=== PATIENT | female | born 1950 | race Caucasian/White ===

== ENCOUNTER 2016-10-31 21:37 | Inpatient (IN) | payer MEDICARE, OTHER ==
--- NOTE | ~2016-10-31 | EGD ---
EGD REPORT [facility] [address] [place] [address] NAME: ALMA SNEED : 52 STATUS : ADM IN PAT#: [id number] AGE: 66 ADM/REG DATE : 11/01/16 MR#: [id number] REPORT SERV DATE: 11/03/16 DICTATED BY: DIANA PETERSON DATE: 11/03/16 REPORT STATUS : Draft TRANSCRIBED BY: [employer] DATE: 11/03/16 [facility] Center Patient Name: Alma Sneed Date of : 1950 Attending MD: DIANA PETERSON, Procedure Date No Time: 11/03/2016 Procedure: Upper GI endoscopy Indications: Iron deficiency anemia secondary to chronic blood loss Medicines: Propofol per Anesthesia Complications: No immediate complications. Estimated blood loss: None. Procedure: Pre-Anesthesia Assessment: - ASA Grade Assessment: III - A patient with severe systemic disease. - ASA Grade Assessment: E - Emergency. After obtaining informed consent, the endoscope was passed under direct vision. Throughout the procedure, the patient's blood pressure, pulse, and oxygen saturations were monitored continuously. The GIF [id number] was introduced through the mouth, and advanced to the second part of duodenum. The upper GI endoscopy was accomplished with ease. The patient tolerated the procedure well. Findings: The examined esophagus was normal. The Z-line was found 35 cm from the incisors. Patchy moderate inflammation characterized by congestion (edema), erosions and erythema was found in the entire examined stomach. Biopsies were taken with a cold forceps for Helicobacter pylori testing. Estimated blood loss: none. The duodenal bulb and 2nd part of the duodenum were normal. Impression: - Normal esophagus. - Z-line 35 cm from the incisors. - Gastritis. Biopsied. - Normal duodenal bulb and 2nd part of the duodenum. Recommendation: - Return patient to [facility] for [facility] care. - Regular diet. - Use Protonix (pantoprazole) 40 mg PO daily. - Await pathology results. - No aspirin, ibuprofen, naproxen, or other non-steroidal anti-inflammatory drugs. - Perform a colonoscopy at appointment to be scheduled. EGD REPORT [facility] [address] [address] NAME: ALMA SENED : [birth year] STATUS : ADM IN [facility]#: [id number] AGE: 66 ADM/REG DATE : 11/01/16 MR#: [id number] REPORT SERV DATE: 11/03/16 DICTATED BY: DIANA PETERSON DATE: 11/03/16 REPORT STATUS : Draft TRANSCRIBED BY: mPortal DATE: 11/03/16 Procedure Code(s): --- Professional --- 94620, Esophagogastroduodenoscopy, flexible, transoral; with biopsy, single or multiple Diagnosis Code(s): --- Professional --- K29.70, Gastritis, unspecified, without bleeding D50.0, Iron deficiency anemia secondary to blood loss (chronic) CPT copyright 2013 [employer]. All rights reserved. The codes documented in this report are preliminary and upon project control officer review may be revised to meet current compliance requirements. DIANA PETERSON, 11/03/2016 1:39 PM This report has been signed electronically. Number of Addenda: 0 Note Initiated On: 11/03/2016 1:04 PM Scope Withdrawal Time 0 hours 0 minutes 0 seconds [address] [id number]
--- NOTE | ~2016-10-31 | DS ---
Discharge Summary [facility] [address] [place]. [address] NAME: SALAZAR SNEED : 52 STATUS : DIS IN PAT#: [id number] AGE: 66 ADM/REG DATE : 11/01/16 MR#: [id number] REPORT SERV DATE: 11/08/16 DICTATED BY: DATE: REPORT STATUS : Draft TRANSCRIBED BY: MODL DATE: 11/07/16 ADMISSION DATE: 11/01/2016 DISCHARGE DATE: 11/07/2016 The patient is admitted to the [facility]. CONSULTANTS: Included Dr. Oma Sosa of Gastroenterology. DISCHARGE DIAGNOSES: 1. Severe iron deficiency anemia status post 4 units of packed red blood cells. Status post EGD this admission-normal. For outpatient colonoscopy. Stool 1/3 positive for blood. 2. Anasarca-suspect nutritional. 3. Nephrotic range proteinuria-for outpatient followup after initiation of JOSE JUAN inhibitor. 4. Transaminitis due to hepatic congestion, improved. 5. Left lower extremity DVT-status post IVC filter on 11/01/2016. Not a candidate for anticoagulation until anemia evaluation is complete. 6. Elevated CA-125-past history of complete hysterectomy. 7. Escherichia coli UTI-started on antibiotics on 11/05/2016, to treat through 11/11/2016, given use of Belle catheter this admission. Urinary tract infection was present at admission. 8. Glaucoma. 9. Severe weakness for ongoing physical rehabilitation. PERTINENT LABS: Admission hemoglobin 2.7, 8.6 at the time of discharge. Creatinine normal. Urinalysis pertinent for urinary tract infection. Subsequent culture pansensitive E. coli. Liver enzymes mildly elevated at admission with AST 49, ALT 126, normalized at discharge. Serum protein electrophoresis negative, hepatitis serology is negative. HIV negative. CA- 125 positive, 24-hour urine protein demonstrating nephrotic range proteinuria. UPEP negative. C3-98, C-4 22, folate 20, B12 495, ferritin 6. BRIEF HISTORY: For full details, please see the previously dictated history of present illness by Cuba Jaimes. This is a 66-year-old white female with minimal past medical history, rare followup with physicians, who presented to the emergency department with chief complaint of progressive edema and shortness of breath for one month. In the emergency department, hemoglobin was noted to be 2.7, and vital signs were stable. The patient was admitted to the [facility] for further stabilization. HOSPITAL COURSE: For full details, please reference interim summary by Dr. Stephane Be, for dates of service 11/01/2016 through 11/04/2016. The patient was transfused four units of packed red blood cells with improvement in hemoglobin to 8.6, and improvement in clinical symptoms. The patient was seen by Dr. Oma Sosa of Gastroenterology and underwent upper endoscopy, which was found to be unremarkable. Colonoscopy was not pursued this hospitalization, but will be done as an outpatient. The patient was heme positive, 1/3 stool samples. Discharge Summary [facility] [address] [place] [address] NAME: SALAZAR SNEED : 52 STATUS : DIS IN PAT#: [id number] AGE: 66 ADM/REG DATE : 11/01/16 MR#: [id number] REPORT SERV DATE: 11/08/16 DICTATED BY: DATE: REPORT STATUS : Draft TRANSCRIBED BY: MODL DATE: 11/07/16 The patient was also found to have left lower extremity DVT this admission. Due to the severity of anemia and incomplete nature of the evaluation for anemia, she was not felt to be a candidate for therapeutic anticoagulation at present. Interventional Radiology placed an IVC filter without difficulty. The patient was seen by Physical Therapy and Occupational Therapy, with recommendation to go to rehab at discharge. She demonstrated anasarca during the admission and had a 24-hour urine collection showing nephrotic range proteinuria. She was started on diuretics and potassium and low-dose lisinopril. Her lower extremity edema improved during the hospitalization. There was felt to be a nutritional component to her anasarca as well. There was no evidence of liver disease on imaging, she did have some increased liver enzymes during the admission initially, this resolved with diuresis and was felt due to passive hepatic congestion. DISCHARGE DISPOSITION: The patient is being discharged to [facility] for additional physical rehabilitation. She has multiple followup appointments that will need to be scheduled. She needs to see Dr. Oma Sosa, within one to two weeks after rehab discharge for planning for colonoscopy. She also needs to follow up with her green marketing analyst regarding the elevated CA-125 level, for a well-woman exam. Incidentally, the patient states she has had a prior history of complete hysterectomy and so it is unclear why this enzyme would be elevated. The patient also does not have a primary care provider, but was provided with a list of primary care providers who are currently accepting patients. If the patient's proteinuria fails to resolve with the low-dose JOSE JUAN inhibitor, she would benefit from eventual referral to Nephrology. Of note, MAYDA was ordered during the admission, but was not sent as ordered. Instead an ANCA panel was obtained and is pending at the time of dictation. The patient will need an outpatient MAYDA as part of her evaluation. DISCHARGE MEDICATIONS: Include: 1. Combigan eyedrops one drop in each eye twice a day. 2. Xalatan eyedrops one drop in each eye twice a day. 3. Prinivil 2.5 mg p.o. daily. 4. Multivitamin one tablet p.o. with breakfast. 5. Protonix 40 mg p.o. with breakfast. 6. Hemocyte 1 tablet p.o. with breakfast and supper. 7. Acetaminophen 650 mg p.o. every 4 hours as needed for pain. 8. Colace 100 mg p.o. twice a day as needed for constipation. 9. Senokot 2 tabs p.o. at bedtime p.r.n. constipation. 10.Lasix 40 mg p.o. daily. 11.Potassium chloride 40 mEq p.o. daily. 12.Nitrofurantoin 100 mg p.o. b.i.d. through 11/11/2016. An echocardiogram was performed this admission-with results still pending at the time of dictation. Available detail was reviewed and shows no evidence of systolic dysfunction. Whether she may also have diastolic dysfunction is presently unknown, but Dr. Corbin will update the report that is available. Discharge Summary [address] [address] NAME: SALAZAR SNEED : 52 STATUS : DIS IN PAT#: [id number] AGE: 66 ADM/REG DATE : 11/01/16 MR#: [id number] REPORT SERV DATE: 11/08/16 DICTATED BY: DATE: REPORT STATUS : Draft TRANSCRIBED BY: REA DATE: 11/07/16 Thirty five minutes was spent in completion of the discharge, including coordination of plan with the patient, family, case management, and rehab. AMAYA/REA Niko Ricketts M.D. / [id number] CC: Li Tapia MD
--- NOTE | ~2016-10-31 | HP ---
History And Physical [place] [id number] [facility] [place]. [address] NAME: SALAZAR SNEED : 52 STATUS : ADM IN [facility]#: [id number] AGE: 66 ADM/REG DATE : 11/01/16 MR#: [id number] REPORT SERV DATE: 11/01/16 DICTATED BY: LISA PAIZ DATE: 11/01/16 REPORT STATUS : Draft TRANSCRIBED BY: MODL DATE: 11/01/16 DATE OF ADMISSION: 11/01/2016 CHIEF COMPLAINT: Swelling of lower extremities and shortness of breath. HISTORY OF PRESENT ILLNESS: The patient is a 66-year-old female with past medical history of hysterectomy for benign cyst, who denies any additional medical history, who reports over the last year, she has been having progressive edema and shortness of breath with activity that has been worsening particularly over the last month. The patient is accompanied by daughter, who has been trying to convince the patient to come in over the last week. The patient has noted that edema has been constant, fairly severe. The patient noted she has been more pale. There is no chest pain or radiating symptoms. The patient has noticed increased shortness of breath with activity with decreased exercise tolerance and has generalized weakness. The patient attributes all these symptoms to life and situational stressors. The patient has had no nausea, vomiting, diuresis, headaches, or fever. Has had increased eating of ice, although she reports she has had this over the last 10 years. 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 Had missed her lab appointment last year, but was also advised to take iron supplements for presumed anemia at that time. Symptoms of shortness of breath are worsened with activity. No relieving symptoms. However, the patient does feel slightly better after getting first unit of blood transfusion. As the patient arrived, the patient is noted to have a hemoglobin at 2.7, although vital signs are remarkably stable aside from mild hypoxemia on 4 L by nasal cannula. PAST MEDICAL HISTORY: The patient denies except for some mild glaucoma. PAST SURGICAL HISTORY: Hysterectomy with salpingo-oophorectomy and wisdom teeth. FAMILY HISTORY: Diabetes and hypertension. SOCIAL HISTORY: Lives alone. Single. Works on the farm. Did have a 17-year smoking history, but quit years ago. No alcohol or illicits. Accompanied by daughter and son was previously here earlier. ALLERGIES: NO KNOWN DRUG ALLERGIES. HOME MEDICATIONS: Combigan and Xalatan. EKG: Normal sinus rhythm, mild inverted T-waves in lead III. Rate of 81. QTc of 457. PHYSICAL EXAMINATION: VITAL SIGNS: Blood pressure 133/46, temperature 98.4, pulse 81, respirations 20, O2 saturations 100% on 4 L. GENERAL: Elderly, frail, pale, but obese female. EYES: Very pale conjunctivae, but symmetrical response. ENT: Dry mucous membranes. History And Physical [address] [address] NAME: SALAZAR SNEED : 52 STATUS : ADM IN [facility]#: [id number] AGE: 66 ADM/REG DATE : 11/01/16 MR#: [id number] REPORT SERV DATE: 11/01/16 DICTATED BY: LISA PAIZ DATE: 11/01/16 REPORT STATUS : Draft TRANSCRIBED BY: ERA DATE: 11/01/16 RESPIRATORY: Clear to auscultation. No wheezes. CV: Physiologic flow murmur. Regular rate. 3+ bilateral edema up to abdomen. GI: Bowel sounds positive. Abdominal edema. Central obesity. : Deferred. Belle placed. MUSCULOSKELETAL: Moves all extremities x4. SKIN: Warm and dry, but pale. Does have bug bites on multiple areas on shoulder, leg, neck, and torso. LYMPH: 3+ edema to abdomen. HEME: No bleeding or bruising. NEURO: Alert and oriented. Does have mild head bobbing. Symmetrical vocal tony. Symptomatically orthostatic. PSYCH: Calm, slightly odd affect, but appropriate responses. LABORATORY DATA: CMP; sodium 138, potassium 4.8, chloride 107, bicarb 17, BUN and creatinine 32 and 1.2, glucose 186, calcium 8.1, albumin 2.7, AST and ALT 233 and 307, alkaline phosphatase 219, T bilirubin 1.3. Troponin negative. BNP 1028.3. CBC; WBC count 11.1, H and H 2.7 and 11.4 with MCV severely low at 58.8, platelets at 358. INR 2.1. Protime 23.4. ASSESSMENT: 1. Severe anemia. 2. Questionable liver injury with elevated LFTs, questionable hepatitis, hepatic congestion. 3. Edema with elevated BNP, questionable congestive heart failure. 4. Metabolic acidosis. 5. Elevated INR. 6. Questionable bedbug. PLAN: 1. For severe anemia, FOBT is currently negative in the emergency room. We will need to follow serial fecal occult blood tests. We will escobar CT with CT chest, abdomen, and pelvis without contrast at this time. No signs of acute bleed. The patient's vital signs remained stable. Imagine this is likely chronic anemia, as the patient has been told in the past to be on iron supplementation, but has not been doing this. Has not followed with PCP except for stock trader, but forgot to get labs at last visit. Transfusing PRBCs, however, in the setting of elevated BNP and volume overload. We will need to monitor closely the patient's physiologic vascular circuit. We will diurese after PRBCs. Followup chest x-rays, as the patient does have clinical volume overload and has been having dyspnea with exertion, likely multifactorial with anemia, worsened by edema. We will complete workup for anemia. Obtain retic count. Iron studies. Blood and labs. No acute sign or acute cause for bleeding, but does have an additional, what appears to be, liver injury. No gross splenomegaly at this time. 2. Questionable liver injury with elevated LFTs. Questionable hepatitis versus hepatic congestion. Check CT. Hepatitis panel, abnormal LFTs, bilirubin mildly elevated, and INR. No current asterixis. We will additionally have GI consultation for both anemia and abnormal LFTs. Monitor clinically. 3. Edema with elevated BNP. No cardiac history reported. We will need to check echocardiogram, as the patient is notably edematous. Has not had prior cardiac workup. History And Physical [address] [address] NAME: SALAZAR SNEED : 52 STATUS : ADM IN PAT#: [id number] AGE: 66 ADM/REG DATE : 11/01/16 MR#: [id number] REPORT SERV DATE: 11/01/16 DICTATED BY: LISA PAIZ DATE: 11/01/16 REPORT STATUS : Draft TRANSCRIBED BY: REA DATE: 11/01/16 Monitor troponins. Diurese as tolerated with blood products being infused. Additionally, check thyroid. 4. Metabolic acidosis. Check lactate, salicylate acid, and Tylenol. Appears fairly compensated. Work up liver and cardiac causes. 5. Elevated INR. Appears consistent with liver injury. One-time dose of vitamin K. Not taking any additional medications. No acute signs of bleeding or bruising at this time. 6. Questionable bedbugs. The patient reports multiple different lesions and scabs on body. Has removed her mattress at home, although she has not quite directly seen any bedbugs. We will place on empiric contact precautions. 7. DVT prophylaxis. The patient does have mildly elevated INR likely secondary to liver. The patient is currently severely anemic and requiring blood transfusions. We will hold from acute prophylaxis at this time, as the patient does have bilateral edema that was developed in irregular pattern, left side greater than right initially. We will obtain ultrasound of lower DVTs and then place on SCDs and TEDs if negative and then consider pharmacologic prophylaxis after anemia stabilizes and source identified. IMCU criteria currently. We will monitor overnight in IMCU due to severe anemia, questionable liver injury, or possible shock liver. No questionable new versus subacute CHF. Additionally, we would like to monitor for transfusion-related respiratory potential failure with low circuit volume prior to arrival and will require diuresis to monitor volume load. 8. Additionally does have intrinsic INR elevation, metabolic acidosis. May possibly be able to transfer to telemetry if the patient remained stable in IMCU, but will need to monitor as vital signs are currently remaining relatively stable during first unit of blood transfusion, which has been monitored by this promotion writer and the ER staff. Guarded prognosis. Discussed with the patient and family. Until underlying etiology identified. DDN/MODL Lisa Paiz MD / [id number] CC: Stephane Be M.D.
--- NOTE | ~2016-10-31 | CN ---
Consultation Report [facility] [address] [place]. [address] NAME: SALAZAR SNEED : 52 STATUS : ADM IN PAT#: [id number] AGE: 66 ADM/REG DATE : 11/01/16 MR#: [id number] REPORT SERV DATE: 11/02/16 DICTATED BY: DIANA SOSA DATE: 11/02/16 REPORT STATUS : Draft TRANSCRIBED BY: MODL DATE: 11/02/16 GI CONSULTATION DATE OF CONSULTATION: 11/02/2016 REASON FOR CONSULTATION: Anemia. HISTORY OF PRESENT ILLNESS: Ms. Sneed is a 66-year-old white female, who was admitted on 11/01/2016 with an increasing swelling in her lower extremities and dyspnea over the past year and much worse over the past one month. She is found to have a hemoglobin of 2.7 and hematocrit of 11. She was then transfused two units of blood and her H and H came up to 5 and 18. She has since gotten two more units and her hemoglobin is now 9. Her INR was 2.1 and is now 1.8. She was also found to have a large DVT extending from the groin to her mid calf and I had come to her room to consult on her on 11/01/2016, but she was getting her IVC filter placed for this large DVT. She tolerated that procedure well, had no other overt signs of bleeding since her procedure was done, and she was not a candidate for anticoagulation at the time of her admission due to her severe anemia. She has not had any EGD or colonoscopy ever performed. PAST MEDICAL HISTORY: Glaucoma. PAST SURGICAL HISTORY: Hysterectomy with bilateral salpingo-oophorectomy and wisdom teeth surgery. FAMILY HISTORY: Diabetes and hypertension. SOCIAL HISTORY: Remote tobacco use. No alcohol or drug use. MEDICATIONS: Reviewed. ALLERGIES: REVIEWED. PHYSICAL EXAMINATION: VITAL SIGNS: The patient is afebrile. Her vital signs are stable. GENERAL: The patient is awake, alert, and oriented x3. Well developed, well nourished, in no acute distress. HEENT: Atraumatic, normocephalic. Anicteric. Mucous membranes moist. CARDIAC: S1, S2. CHEST: Clear. ABDOMEN: Soft, nontender, and nondistended. Bowel sounds normoactive. LABORATORY DATA: Show WBC 10.2, hemoglobin 5.1, now up to 9 since her transfusion, hematocrit 18, and platelets 227. INR is 1.7. Consultation Report [place] [id number] [place] [address] NAME: SALAZAR SNEED : 52 STATUS : ADM IN PAT#: [id number] AGE: 66 ADM/REG DATE : 11/01/16 MR#: [id number] REPORT SERV DATE: 11/02/16 DICTATED BY: DIANA SOSA DATE: 11/02/16 REPORT STATUS : Draft TRANSCRIBED BY: REA DATE: 11/02/16 Sodium 139, potassium 3.2, chloride 107, bicarb 25, BUN 29, creatinine 0.9, and glucose 137. IMPRESSION AND PLAN: Anemia. I discussed further investigation with endoscopy, which can be performed tomorrow. After discussing this with her family, she is agreeable to proceed. I reviewed the procedure, indications, risks, benefits, and alternatives with her. Questions and concerns were addressed. I would continue Protonix and serial H and H, and look for any overt signs of bleeding. I also think that the patient should require a colonoscopy at some point. This can be done on an outpatient basis. PAPO/REA Diana Sosa MD / [id number] CC: Stephane Be M.D.
--- NOTE | ~2016-10-31 | IDS ---
Interim Discharge Summary [facility] [address] [place]. [address] NAME: SALAZAR SNEED : 52 STATUS : ADM IN PAT#: [id number] AGE: 66 ADM/REG DATE : 11/01/16 MR#: [id number] REPORT SERV DATE: 11/04/16 DICTATED BY: Stephane DE LOS SANTOS DATE: 11/04/16 REPORT STATUS : Draft TRANSCRIBED BY: MODL DATE: 11/04/16 ADMISSION DATE: 11/01/2016 DISCHARGE DATE: INTERIM SUMMARY DATE: 11/04/2016. DIAGNOSES AT TIME OF INTERIM SUMMARY: Severe iron deficiency anemia; left leg deep vein thrombosis; elevated liver tests, felt secondary to hepatic congestion; anasarca of metabolic acidosis, resolved; glaucoma; E coli urinary tract infection, present on admission, on treatment. CONSULTS: Gastroenterology and Interventional Radiology. PROCEDURES: IVC filter placement and upper endoscopy. BRIEF HOSPITAL COURSE: A 66-year-old female, who has not seen a doctor in a number of years and been getting progressively weak at home, was finally encouraged to come in for evaluation by her family and was found to have profound anemia with a hemoglobin of 2.7, initially treated with transfusion with good results. Seen and evaluated by Gastroenterology. The patient did have an upper endoscopy, which was found to be unremarkable. Gastroenterology did not feel the need to pursue colonoscopy during this hospitalization and will pursue this as an outpatient. The patient was found to have a DVT of the left leg. Because of her severe anemia, it was felt imprudent to use anticoagulants in this setting. As a result, Interventional Radiology placed an IVC filter placement without difficulty. At the time of this dictation, the patient is being evaluated by Physical Therapy and Occupational Therapy and we are making a determination of what is the safe disposition, whether she can go home with home health or will need rehabilitation to improve her functional status. The patient will be on oral iron therapy as well as multivitamin therapy. She has had a 24-hour urine collection that shows nephritic-range proteinuria, but no evidence of nephrotic syndrome. We will initiate gentle diuretic therapy with supplementation of her potassium. We continued to monitor lab work as well as her progression and progress with physical therapy. Another member of the hospitalist team will see the patient starting 11/05. Her disposition will depend on her functional status as evaluated by Physical Therapy. GAUDENCIO/REA Stephane De Los Santos M.D. / [id number] CC: Stephane De Los Santos M.D.
[2016-10-31 22:33] LABS: BASOPHILS 0.3 %; BASOPHILS ABSOLUTE 0.03 10/3/uL (0.0-0.16); EOSINOPHILS 0.5 %; EOSINOPHILS ABSOLUTE 0.05 10/3/uL (0.0-0.53); ER CBC TAT 0 Hrs 08 Mins; IMMATURE GRANULOCYTES 0.5 %; IMMATURE GRANULOCYTES ABSOLUTE 0.06 10/3/uL (0.0-0.11); LYMPHOCYTES 9.5 %; LYMPHOCYTES ABSOLUTE 1.05 10/3/uL (0.67-4.30); MEAN PLATELET VOLUME 9.1 fL (9.2-13.0); MONOCYTES 9.5 %; MONOCYTES ABSOLUTE 1.05 10/3/uL (0.21-1.20); NEUTROPHILS 79.7 %; NEUTROPHILS ABSOLUTE 8.81 10/3/uL (2.02-8.40); NUCLEATED RED BLOOD CELLS 7.4 /100WBC (0-0); PLATELET COUNT 358 10/3/uL (150-400); WHITE BLOOD CELLS 11.1 10/3/uL (4.5-10.5)
[2016-10-31 22:36] LABS: RED CELL COUNT 1.94 10/6/uL (4.0-5.6)
[2016-10-31 22:37] LABS: INTERNATIONAL NORMAL RATI 2.1 UNITS (-); PARTIAL THROMBO TIME 30.4 SEC (22.5-37.2); PROTIME (NOT ORD) 23.4 SEC (12.0-14.5)
[2016-10-31 22:40] LABS: HEMATOCRIT 11.4 % (36.0-48.0); HEMOGLOBIN 2.7 g/dL (12.0-16.0); MANUAL DIFF NO %; MEAN CORPUS HGB CONC 23.7 g/dL (32.0-36.0); MEAN CORPUSCULAR HEMOGLOB 13.9 pg (26.0-34.0); MEAN CORPUSCULAR VOLUME 58.8 fL (80-100); RBC DISTRIBUTION WIDTH 23.4 % (12.0-16.0)
[2016-10-31 22:44] LABS: A/G RATIO 0.8 (0.7-1.9); ALBUMIN 2.7 G/DL (3.5-5.0); ALKALINE PHOSPHATASE 219 U/L (45-117); BUN (BLOOD UREA NITROGEN) 32 MG/DL (6-23); CALCIUM, SERUM 8.1 MG/DL (8.5-10.4); CHLORIDE, SERUM 107 MMOL/L (96-112); CO2 (CARBON DIOXIDE) 17 MMOL/L (24-34); GFR AFRICAN AMERICAN 55 ML/MIN (>=60); GFR NON AFRICAN AMERICAN 47 ML/MIN (>=60); GLOBULIN 3.5 G/DL (2.5-4.1); GLUCOSE, SERUM 186 MG/DL (60-99); POTASSIUM, SERUM 4.8 MMOL/L (3.5-5.3); SGOT(AST) 233 U/L (5-40); SGPT(ALT) 307 U/L (5-65); SODIUM, SERUM 138 MMOL/L (135-148); TOTAL BILIRUBIN 1.3 MG/DL (0-1.2); TOTAL PROTEIN 6.2 G/DL (6.0-8.5); TROPONIN I 0.03 NG/ML (<0.05)
[2016-10-31 23:45] LABS: POIKILOCYTOSIS 4+ (>50/OIF) (0-5/OIF); SCHISTOCYTES FEW (3-10/OIF)
[2016-10-31 23:46] LABS: PATH REVIEW YES; TARGET CELLS FEW (3-10/OIF) (0-1/OIF)
[2016-11-01] MEDS ORDERED: XALAT OPH (00:14)
[2016-11-01] MEDS ORDERED: COMBIGAN0.2 MG/0.5 OPH (00:15)
[2016-11-01 07:04] LABS: BE (BASE EXCESS) -11.5 MEQ/L (0 +/- 2.5); CARBOXYHEMOGLOBIN 3.2 % (0-3); DEVICE NC; HCO3 (ACTUAL BICARBONATE) 12.6 MEQ/L (23-27); HEMOBLOGIN CONTENT 3.1 G/DL (12-16); INSTRUMENT SERIAL # 8087; METHEMOGLOBIN 0.4 % (0-3); O2 CONTENT 4.5 VOL% (18-24); PCO2 (CO2 TENSION) 20 MMHG (35-45); PO2 (O2 TENSION) 139 MMHG (79-93); SAMPLE Arterial; pH 7.41 (7.37-7.43)
[2016-11-01 09:41] LABS: INTERNATIONAL NORMAL RATI 1.8 UNITS (-); PROTIME (NOT ORD) 20.4 SEC (12.0-14.5)
[2016-11-01 09:55] LABS: A/G RATIO 0.8 (0.7-1.9); ALBUMIN 2.9 G/DL (3.5-5.0); ALKALINE PHOSPHATASE 230 U/L (45-117); BUN (BLOOD UREA NITROGEN) 29 MG/DL (6-23); CHLORIDE, SERUM 107 MMOL/L (96-112); FERRITIN 6 NG/ML (8-252); FREE T4 1.32 NG/DL (0.76-1.46); GFR AFRICAN AMERICAN 78 ML/MIN (>=60); GFR NON AFRICAN AMERICAN 67 ML/MIN (>=60); GLOBULIN 3.5 G/DL (2.5-4.1); IRON BINDING CAPACITY 379 MCG/DL (225-410); IRON, SERUM 58 MCG/DL (35-150); SGOT(AST) 205 U/L (5-40); SGPT(ALT) 295 U/L (5-65); SODIUM, SERUM 139 MMOL/L (135-148); TOTAL PROTEIN 6.4 G/DL (6.0-8.5)
[2016-11-01 09:58] LABS: CO2 (CARBON DIOXIDE) 25 MMOL/L (24-34); GLUCOSE, SERUM 137 MG/DL (60-99); POTASSIUM, SERUM 3.2 MMOL/L (3.5-5.3); TOTAL BILIRUBIN 2.8 MG/DL (0-1.2); TROPONIN I 0.05 NG/ML (<0.05)
[2016-11-01 09:59] LABS: ACETAMINOPHEN LEVEL (TYLENOL) < 2.0 MCG/ML (10.0-20.0); SALICYLATE < 1.7 MG/DL (-)
[2016-11-01 10:04] LABS: GLYCOHEMOGLOBIN (HbA1c) 5.5 % (4.7-6.1)
[2016-11-01 10:07] LABS: CA 125 II 97.7 U/ML (< 35.0); CEA 0.7 NG/ML
[2016-11-01 10:34] LABS: PROCALCITONIN 0.34 ng/mL (<0.5)
[2016-11-01 10:39] LABS: HEPATITIS B SURFACE ANTIGEN NON-REACTIVE (NON-REACT)
[2016-11-01 11:00] LABS: HEPATITIS C ANTIBODY NON-REACTIVE (NON-REACT)
[2016-11-01 11:01] LABS: HEPATITIS B CORE AB IGM NON-REACTIVE (NON-REAC)
[2016-11-01 11:07] LABS: HIV COMBO NON-REACTIVE (NON REAC)
[2016-11-01 11:08] LABS: HEP A ANTIBODY IGM NON-REACTIVE (NON-REACT)
[2016-11-01 12:17] LABS: MEAN PLATELET VOLUME 9.2 fL (9.2-13.0); NUCLEATED RED BLOOD CELLS 5.7 /100WBC (0-0); RETICULOCYTE COUNT 1.3 % (0.5-2.5); RETICULOCYTE COUNT ABSOLUTE 33.4 10/3/uL (20.2-119.8); WHITE BLOOD CELLS 10.2 10/3/uL (4.5-10.5)
[2016-11-01 12:18] LABS: HEMOGLOBIN 5.1 g/dL (12.0-16.0); MEAN CORPUS HGB CONC 28.3 g/dL (32.0-36.0); MEAN CORPUSCULAR HEMOGLOB 19.1 pg (26.0-34.0); MEAN CORPUSCULAR VOLUME 67.4 fL (80-100); PLATELET COUNT 227 10/3/uL (150-400); RBC DISTRIBUTION WIDTH 28.7 % (12.0-16.0); RED CELL COUNT 2.67 10/6/uL (4.0-5.6)
[2016-11-01 12:19] LABS: MANUAL DIFF YES %
[2016-11-01 12:35] LABS: BAND NEUTROPHILS 4 %; EOSINOPHILS 1 %; LYMPHOCYTES 22 %; LYMPHOCYTES ABSOLUTE (CALC) 2.24 10/3/uL (0.67-4.30); METAMYELOCYTES 2 %; NEUTROPHILS ABSOLUTE (CALC) 7.65 10/3/uL (2.02-8.40); SEGMENTED NEUTROPHIL (0) 71 %; TOTAL NUCLEATED CELLS 100
[2016-11-01 12:36] LABS: ANISOCYTOSIS 4+ (>50/OIF) (0-5/OIF); HELMET CELLS OCC (0-2/OIF); HYPOCHROMIA 3+ (>30/OIF) (0-2/OIF); OVALOCYTES 1+ (3-10/OIF) (0-2/OIF); PLATELET ESTIMATE ADQ (ADEQUATE); POLYCHROMASIA 1+ (2-5/OIF) (0-1/OIF); TEARDROP SHAPED RBCS OCC (0-2/OIF)
[2016-11-02 00:12] LABS: HEMATOCRIT 25.8 % (36.0-48.0)
[2016-11-02 06:34] LABS: INTERNATIONAL NORMAL RATI 1.6 UNITS (-); PROTIME (NOT ORD) 18.9 SEC (12.0-14.5)
[2016-11-02 06:36] LABS: BASOPHILS 0.5 %; BASOPHILS ABSOLUTE 0.06 10/3/uL (0.0-0.16); EOSINOPHILS 2.5 %; EOSINOPHILS ABSOLUTE 0.27 10/3/uL (0.0-0.53); HEMATOCRIT 26.6 % (36.0-48.0); HEMOGLOBIN 8.4 g/dL (12.0-16.0); IMMATURE GRANULOCYTES 1.4 %; IMMATURE GRANULOCYTES ABSOLUTE 0.15 10/3/uL (0.0-0.11); LYMPHOCYTES 12.4 %; LYMPHOCYTES ABSOLUTE 1.37 10/3/uL (0.67-4.30); MONOCYTES 11.6 %; MONOCYTES ABSOLUTE 1.28 10/3/uL (0.21-1.20); NEUTROPHILS 71.6 %; NEUTROPHILS ABSOLUTE 7.88 10/3/uL (2.02-8.40); NUCLEATED RED BLOOD CELLS 4.7 /100WBC (0-0); PLATELET COUNT 179 10/3/uL (150-400); RBC DISTRIBUTION WIDTH 26.3 % (12.0-16.0)
[2016-11-02 06:37] LABS: MANUAL DIFF NO %; MEAN CORPUS HGB CONC 31.6 g/dL (32.0-36.0); MEAN CORPUSCULAR VOLUME 72.7 fL (80-100); RED CELL COUNT 3.66 10/6/uL (4.0-5.6)
[2016-11-02 06:43] LABS: A/G RATIO 0.8 (0.7-1.9); ALBUMIN 2.4 G/DL (3.5-5.0); CALCIUM, SERUM 7.6 MG/DL (8.5-10.4); CHLORIDE, SERUM 111 MMOL/L (96-112); CO2 (CARBON DIOXIDE) 23 MMOL/L (24-34); CREATININE 0.89 MG/DL (0.55-1.02); GFR AFRICAN AMERICAN 79 ML/MIN (>=60); GFR NON AFRICAN AMERICAN 68 ML/MIN (>=60); GLOBULIN 2.9 G/DL (2.5-4.1); GLUCOSE, SERUM 117 MG/DL (60-99); POTASSIUM, SERUM 3.3 MMOL/L (3.5-5.3); SGOT(AST) 99 U/L (5-40); SGPT(ALT) 192 U/L (5-65); SODIUM, SERUM 144 MMOL/L (135-148); TOTAL BILIRUBIN 2.7 MG/DL (0-1.2); TOTAL PROTEIN 5.3 G/DL (6.0-8.5)
[2016-11-02 06:44] LABS: ALKALINE PHOSPHATASE 175 U/L (45-117); BUN (BLOOD UREA NITROGEN) 21 MG/DL (6-23)
[2016-11-02 06:52] LABS: PLATELET ESTIMATE ADQ (ADEQUATE)
[2016-11-02 06:53] LABS: HYPOCHROMIA 1+ (3-10/OIF) (0-2/OIF); POLYCHROMASIA 1+ (2-5/OIF) (0-1/OIF)
[2016-11-02 06:54] LABS: HELMET CELLS OCC (0-2/OIF); TEARDROP SHAPED RBCS OCC (0-2/OIF)
[2016-11-02 06:56] LABS: SCHISTOCYTES OCC (0-2/OIF)
[2016-11-02 09:02] LABS: ASCORBIC ACID (UR NOT ORDER) NEG (NEG); BILIRUBIN, URINE NEGATIVE (NEG); KETONE, URINE NEGATIVE (NEG); LEUKOCYTE ESTERASE(NOT OR MOD (NEG); WBC (NOT ORDERED) (RFLEX) 18 (0-5)
[2016-11-02 10:47] LABS: HEMATOCRIT 29.8 % (36.0-48.0)
[2016-11-03 06:28] LABS: HEMATOCRIT 28.2 % (36.0-48.0); HEMOGLOBIN 8.5 g/dL (12.0-16.0); MEAN CORPUS HGB CONC 30.1 g/dL (32.0-36.0); MEAN CORPUSCULAR HEMOGLOB 22.1 pg (26.0-34.0); MEAN CORPUSCULAR VOLUME 73.4 fL (80-100); NUCLEATED RED BLOOD CELLS 2.6 /100WBC (0-0); PLATELET COUNT 132 10/3/uL (150-400); RBC DISTRIBUTION WIDTH 27.2 % (12.0-16.0); RED CELL COUNT 3.84 10/6/uL (4.0-5.6); WHITE BLOOD CELLS 10.9 10/3/uL (4.5-10.5)
[2016-11-03 06:31] LABS: MANUAL DIFF YES %
[2016-11-03 06:37] LABS: A/G RATIO 0.8 (0.7-1.9); ALBUMIN 2.2 G/DL (3.5-5.0); CALCIUM, SERUM 7.2 MG/DL (8.5-10.4); CHLORIDE, SERUM 113 MMOL/L (96-112); CO2 (CARBON DIOXIDE) 23 MMOL/L (24-34); CREATININE 0.66 MG/DL (0.55-1.02); GFR AFRICAN AMERICAN 107 ML/MIN (>=60); GFR NON AFRICAN AMERICAN 93 ML/MIN (>=60); GLOBULIN 2.6 G/DL (2.5-4.1); POTASSIUM, SERUM 3.9 MMOL/L (3.5-5.3); SGOT(AST) 49 U/L (5-40); SGPT(ALT) 126 U/L (5-65); SODIUM, SERUM 145 MMOL/L (135-148); TOTAL PROTEIN 4.8 G/DL (6.0-8.5)
[2016-11-03 06:38] LABS: ALKALINE PHOSPHATASE 138 U/L (45-117); BUN (BLOOD UREA NITROGEN) 14 MG/DL (6-23); GLUCOSE, SERUM 92 MG/DL (60-99); TOTAL BILIRUBIN 1.3 MG/DL (0-1.2)
[2016-11-03 07:17] LABS: BAND NEUTROPHILS 2 %; BASOPHILS 1 %; BASOPHILS ABSOLUTE (CALC) 0.11 10/3/uL (0.0-0.16); EOSINOPHILS 2 %; EOSINOPHILS ABSOLUTE (CALC) 0.22 10/3/uL (0.0-0.53); IMMATURE GRANS ABSOLUTE (CALC) 0.22 10/3/uL (0.0-0.11); LYMPHOCYTES 14 %; LYMPHOCYTES ABSOLUTE (CALC) 1.53 10/3/uL (0.67-4.30); METAMYELOCYTES 1 %; MONOCYTES 12 %; MONOCYTES ABSOLUTE (CALC) 1.31 10/3/uL (0.21-1.20); MYELOCYTES 1 %; NEUTROPHILS ABSOLUTE (CALC) 7.52 10/3/uL (2.02-8.40); PLATELET ESTIMATE SLT DEC (ADEQUATE); SEGMENTED NEUTROPHIL (0) 67 %; TOTAL NUCLEATED CELLS 100
[2016-11-03 07:18] LABS: MACROCYTES 1+ (5-10/OIF) (0-5/OIF); POIKILOCYTOSIS 1+ (5-10/OIF) (0-5/OIF); POLYCHROMASIA 1+ (2-5/OIF) (0-1/OIF); SCHISTOCYTES FEW (3-10/OIF)
[2016-11-03 07:19] LABS: HYPOCHROMIA 1+ (3-10/OIF) (0-2/OIF)
[2016-11-03 21:19] LABS: T PROTEIN (ELECT)(NOT OR 4.9 G/DL (6.0-8.5)
[2016-11-04 06:01] LABS: BUN (BLOOD UREA NITROGEN) 12 MG/DL (6-23); CALCIUM, SERUM 7.2 MG/DL (8.5-10.4); CHLORIDE, SERUM 109 MMOL/L (96-112); CO2 (CARBON DIOXIDE) 25 MMOL/L (24-34); CREATININE 0.72 MG/DL (0.55-1.02); GFR AFRICAN AMERICAN 102 ML/MIN (>=60); GFR NON AFRICAN AMERICAN 88 ML/MIN (>=60); POTASSIUM, SERUM 3.6 MMOL/L (3.5-5.3); SODIUM, SERUM 142 MMOL/L (135-148)
[2016-11-04 06:05] LABS: GLUCOSE, SERUM 123 MG/DL (60-99)
[2016-11-04 06:18] LABS: BASOPHILS 0.4 %; BASOPHILS ABSOLUTE 0.04 10/3/uL (0.0-0.16); EOSINOPHILS 2.1 %; EOSINOPHILS ABSOLUTE 0.24 10/3/uL (0.0-0.53); HEMATOCRIT 28.1 % (36.0-48.0); HEMOGLOBIN 8.4 g/dL (12.0-16.0); IMMATURE GRANULOCYTES 0.8 %; IMMATURE GRANULOCYTES ABSOLUTE 0.09 10/3/uL (0.0-0.11); LYMPHOCYTES 15.5 %; LYMPHOCYTES ABSOLUTE 1.75 10/3/uL (0.67-4.30); MEAN CORPUS HGB CONC 29.9 g/dL (32.0-36.0); MEAN CORPUSCULAR HEMOGLOB 22.2 pg (26.0-34.0); MEAN CORPUSCULAR VOLUME 74.1 fL (80-100); MONOCYTES 11.7 %; MONOCYTES ABSOLUTE 1.32 10/3/uL (0.21-1.20); NEUTROPHILS 69.5 %; NEUTROPHILS ABSOLUTE 7.82 10/3/uL (2.02-8.40); NUCLEATED RED BLOOD CELLS 1.7 /100WBC (0-0); PLATELET COUNT 120 10/3/uL (150-400); RBC DISTRIBUTION WIDTH 29.2 % (12.0-16.0); RED CELL COUNT 3.79 10/6/uL (4.0-5.6); WHITE BLOOD CELLS 11.3 10/3/uL (4.5-10.5)
[2016-11-04 06:19] LABS: MANUAL DIFF NO %
[2016-11-04 06:37] LABS: ANISOCYTOSIS 4+ (>50/OIF) (0-5/OIF)
[2016-11-04 06:38] LABS: ELLIPTOCYTES 1+ (3-10/OIF) (0-2/OIF); POIKILOCYTOSIS 1+ (5-10/OIF) (0-5/OIF); POLYCHROMASIA 1+ (2-5/OIF) (0-1/OIF); RBC MORPHOLOGY ABN (NORMAL)
[2016-11-04 06:58] LABS: CREAT SERUM (NOT ORDER) 0.72 MG/DL (0.53-1.43)
[2016-11-04 07:42] LABS: T.P. URINE (NOT ORDER RAN 43.6 MG/DL
[2016-11-04 07:43] LABS: URINE CREAT 1.17 G/T VOL (0.6-2.8)
[2016-11-04 13:21] LABS: A/G 1.03 RATIO (0.9-2.10); ALB RELATIVE % 50.7 % (60.0-89.0); ALBUMIN (ELECTRO) 2.48 GM/DL (3.2-5.5); ALPHA 1 (ELECTRO) 0.26 GM/DL (0.1-0.4); ALPHA 1 RELAT % (NOT ORD) 5.4 % (1.0-4.0); ALPHA 2 (ELECTRO) 0.59 GM/DL (0.5-1.10); BETA GLOBULIN (SPE) 0.58 GM/DL (0.60-1.30); BETA RELATIVE % 11.9 % (9.0-22.0); GAMMA GLOBULIN (SPE) 0.98 G/DL (0.70-1.60)
[2016-11-05 05:45] LABS: BASOPHILS 0.2 %; BASOPHILS ABSOLUTE 0.02 10/3/uL (0.0-0.16); EOSINOPHILS 2.2 %; EOSINOPHILS ABSOLUTE 0.24 10/3/uL (0.0-0.53); HEMATOCRIT 28.8 % (36.0-48.0); HEMOGLOBIN 8.6 g/dL (12.0-16.0); IMMATURE GRANULOCYTES 0.9 %; LYMPHOCYTES 15.3 %; LYMPHOCYTES ABSOLUTE 1.69 10/3/uL (0.67-4.30); MEAN CORPUS HGB CONC 29.9 g/dL (32.0-36.0); MEAN CORPUSCULAR HEMOGLOB 22.7 pg (26.0-34.0); MONOCYTES 10.5 %; MONOCYTES ABSOLUTE 1.16 10/3/uL (0.21-1.20); NEUTROPHILS 70.9 %; PLATELET COUNT 111 10/3/uL (150-400); RBC DISTRIBUTION WIDTH 30.5 % (12.0-16.0); RED CELL COUNT 3.79 10/6/uL (4.0-5.6)
[2016-11-05 05:46] LABS: MANUAL DIFF NO %
[2016-11-05 06:25] LABS: ANISOCYTOSIS 4+ (>50/OIF) (0-5/OIF); PLATELET ESTIMATE SLT DEC (ADEQUATE)
[2016-11-05 06:26] LABS: SCHISTOCYTES FEW (3-10/OIF); TARGET CELLS FEW (3-10/OIF) (0-1/OIF)
[2016-11-06 06:03] LABS: COMPLEMENT C3 98 MG/DL (75-161); COMPLEMENT C4 22.1 MG/DL (16-47)
[2016-11-06 06:05] LABS: BASOPHILS 0.2 %; BASOPHILS ABSOLUTE 0.02 10/3/uL (0.0-0.16); EOSINOPHILS 2.9 %; EOSINOPHILS ABSOLUTE 0.26 10/3/uL (0.0-0.53); HEMATOCRIT 29.2 % (36.0-48.0); HEMOGLOBIN 8.6 g/dL (12.0-16.0); IMMATURE GRANULOCYTES 0.5 %; IMMATURE GRANULOCYTES ABSOLUTE 0.05 10/3/uL (0.0-0.11); LYMPHOCYTES 16.7 %; LYMPHOCYTES ABSOLUTE 1.52 10/3/uL (0.67-4.30); MEAN CORPUS HGB CONC 29.5 g/dL (32.0-36.0); MEAN CORPUSCULAR HEMOGLOB 22.4 pg (26.0-34.0); MONOCYTES 9.6 %; MONOCYTES ABSOLUTE 0.88 10/3/uL (0.21-1.20); NEUTROPHILS 70.1 %; NEUTROPHILS ABSOLUTE 6.39 10/3/uL (2.02-8.40); PLATELET COUNT 118 10/3/uL (150-400); RED CELL COUNT 3.84 10/6/uL (4.0-5.6); WHITE BLOOD CELLS 9.1 10/3/uL (4.5-10.5)
[2016-11-06 06:06] LABS: MANUAL DIFF NO %
[2016-11-06 06:20] LABS: ALBUMIN 1.9 G/DL (3.5-5.0); BUN (BLOOD UREA NITROGEN) 11 MG/DL (6-23); CALCIUM, SERUM 7.8 MG/DL (8.5-10.4); CHLORIDE, SERUM 109 MMOL/L (96-112); CO2 (CARBON DIOXIDE) 29 MMOL/L (24-34); GFR AFRICAN AMERICAN 111 ML/MIN (>=60); GFR NON AFRICAN AMERICAN 96 ML/MIN (>=60); POTASSIUM, SERUM 4.2 MMOL/L (3.5-5.3); SGOT(AST) 19 U/L (5-40); SGPT(ALT) 51 U/L (5-65); SODIUM, SERUM 143 MMOL/L (135-148); TOTAL PROTEIN 5.2 G/DL (6.0-8.5)
[2016-11-06 06:27] LABS: A/G RATIO 0.6 (0.7-1.9); ALKALINE PHOSPHATASE 87 U/L (45-117); FOLATE 19.9 NG/ML (>5.2); GLOBULIN 3.3 G/DL (2.5-4.1); GLUCOSE, SERUM 149 MG/DL (60-99); TOTAL BILIRUBIN 0.6 MG/DL (0-1.2)
[2016-11-06 07:14] LABS: HYPOCHROMIA 1+ (3-10/OIF) (0-2/OIF); MICROCYTES 1+ (5-10/OIF) (0-5/OIF); PLATELET ESTIMATE SLT DEC (ADEQUATE); POLYCHROMASIA 1+ (2-5/OIF) (0-1/OIF)
[2016-11-06 07:15] LABS: OVALOCYTES 1+ (3-10/OIF) (0-2/OIF); SCHISTOCYTES OCC (0-2/OIF)
[2016-11-06 07:16] LABS: ANISOCYTOSIS 1+ (5-10/OIF) (0-5/OIF); TEARDROP SHAPED RBCS OCC (0-2/OIF)
[2016-11-06 07:23] LABS: SED RATE 24 MM/HR (0-20)
[2016-11-07 06:15] LABS: BASOPHILS 0.6 %; BASOPHILS ABSOLUTE 0.05 10/3/uL (0.0-0.16); EOSINOPHILS 4.3 %; EOSINOPHILS ABSOLUTE 0.34 10/3/uL (0.0-0.53); HEMATOCRIT 30.2 % (36.0-48.0); HEMOGLOBIN 8.6 g/dL (12.0-16.0); IMMATURE GRANULOCYTES 0.4 %; IMMATURE GRANULOCYTES ABSOLUTE 0.03 10/3/uL (0.0-0.11); LYMPHOCYTES 18.8 %; MEAN CORPUS HGB CONC 28.5 g/dL (32.0-36.0); MEAN CORPUSCULAR HEMOGLOB 21.9 pg (26.0-34.0); MONOCYTES 10.8 %; MONOCYTES ABSOLUTE 0.86 10/3/uL (0.21-1.20); NEUTROPHILS 65.1 %; NEUTROPHILS ABSOLUTE 5.21 10/3/uL (2.02-8.40); PLATELET COUNT 137 10/3/uL (150-400); RED CELL COUNT 3.92 10/6/uL (4.0-5.6)
[2016-11-07 06:16] LABS: MANUAL DIFF NO %
[2016-11-07 06:32] LABS: ALBUMIN 2.1 G/DL (3.5-5.0); BUN (BLOOD UREA NITROGEN) 11 MG/DL (6-23); CALCIUM, SERUM 8.3 MG/DL (8.5-10.4); CHLORIDE, SERUM 108 MMOL/L (96-112); CO2 (CARBON DIOXIDE) 28 MMOL/L (24-34); CREATININE 0.57 MG/DL (0.55-1.02); GFR AFRICAN AMERICAN 113 ML/MIN (>=60); GFR NON AFRICAN AMERICAN 97 ML/MIN (>=60); GLUCOSE, SERUM 136 MG/DL (60-99); PHOSPHORUS, SERUM 3.9 MG/DL (2.5-4.5); POTASSIUM, SERUM 4.3 MMOL/L (3.5-5.3); SODIUM, SERUM 143 MMOL/L (135-148)
[2016-11-07 06:35] LABS: ANISOCYTOSIS 1+ (5-10/OIF) (0-5/OIF); HYPOCHROMIA 3+ (>30/OIF) (0-2/OIF); OVALOCYTES 1+ (3-10/OIF) (0-2/OIF); PLATELET ESTIMATE SLT DEC (ADEQUATE); RBC MORPHOLOGY ABN (NORMAL); TARGET CELLS OCC (1-2/OIF) (0-1/OIF); TEARDROP SHAPED RBCS FEW (3-10/OIF)
[2016-11-09 23:31] LABS: ANCA <1:20 (()); MYELOPEROXIDASE ANTIBODY <0.2 AI (<1.0); PROTEINASE 3 ANTIBODY <0.2 AI (<1.0)
[2017-01-10] MEDS ORDERED: TIMOLOL MAL0.5 % OPH (12:12)
[2017-01-10] MEDS ORDERED: ZESTRIL2.5 MG PO (12:13)
[2017-01-10] MEDS ORDERED: PROTONIX PO (12:15)
[2017-01-10] MEDS ORDERED: KLOR-CON M2020 MEQ PO (12:16)
[2017-01-10] MEDS ORDERED: L40 PO (12:17)
[2017-01-10] MEDS ORDERED: NORCO1 TA1 PO (12:17)
[2017-01-10] MEDS ORDERED: HEMOCYTE324 MG PO (12:18)
[2017-01-10] MEDS ORDERED: VITAMIN D31000 UNIT PO (12:18)
[2017-01-10] MEDS ORDERED: MEDS (12:41)
== END 2016-11-07 17:09 | DRG 252 ==
LOC: ER 21:37 → IMCU 11-01 01:12 → 6NO 11-02 16:19
PROVIDERS: Hospitalist; Internal Medicine; Nurse Practitioner Acute Care; Student in an Organized Health Care Education/Training Program
PROC: 06H03DZ Insertion of Intraluminal Device into Inferior Vena Cava, Percutaneous Approach (ICD-10-PCS; principal; 2016-11-01)
PROC: 30233N1 Transfusion of Nonautologous Red Blood Cells into Peripheral Vein, Percutaneous Approach (ICD-10-PCS; 2016-11-01)
PROC: 0DB68ZX Excision of Stomach, Via Natural or Artificial Opening Endoscopic, Diagnostic (ICD-10-PCS; 2016-11-03)
DX: I82.492 Acute embolism and thrombosis of other specified deep vein of left lower extremity (principal); J96.01 Acute respiratory failure with hypoxia; E87.2 Acidosis; N39.0 Urinary tract infection, site not specified; D62 Acute posthemorrhagic anemia; K76.1 Chronic passive congestion of liver; B96.20 Unspecified Escherichia coli [E. coli] as the cause of diseases classified elsewhere; H40.9 Unspecified glaucoma; Z87.891 Personal history of nicotine dependence; E66.9 Obesity, unspecified; Z68.38 Body mass index [BMI] 38.0-38.9, adult; R19.5 Other fecal abnormalities
CPT/HCPCS: 36415; 36430; 36600; 37191; 71010; 71250; 74176; 80048; 80053; 80069; 80074; 81001; 82140; 82150; 82272; 82378; 82575; 82607; 82728; 82746; 82805; 83036; 83516; 83516-59; 83540; 83550; 83605; 83615; 83690; 83735; 83880; 84145; 84155; 84156; 84165; 84439; 84443; 84484; 85014; 85018; 85025; 85045; 85610; 85652; 85730; 86160; 86255; 86304; 86850; 86900; 86901; 86920; 87077; 87086; 87186; 87389; 88305; 88342; 93005; 93306; 93970; 97110-GO; 97110-GP; 97116-GP; 97163-GP; 97165-GO; 97530-GP; 99152; 99291; A9270-GY; C1769; C9113; G0480; G8978-CL-GP; G8979-CK-GP; J1170; J1940; J2405; P9016